=== PATIENT | female | born 1995 | race African-American/Black ===

== ENCOUNTER 2016-09-16 16:49 | Emergency (ER) | payer MEDICAID ==
[2016-09-16 19:30] VITALS: RESP 18
[2016-09-16 19:33] LABS: CHLAMYDIA PCR NOT DETECTED (NOT DETECT); NEISSERIA PCR NOT DETECTED (NOT DETECT)
[2016-09-16] MEDS ORDERED: METR-1 PO ×2 (19:39)
--- NOTE | 2016-09-16 19:53 | PD ---
HPI Chief Complaint vag bleeding Date Seen: Sep 16, 2016 Travel History International Travel<30 Days: No Contact w/Intl Traveler<30Days: No Known Affected Area: No History of Present Illness HPI Pt is a 20 year old G1 with IUP at 18 wks who presents with c/o vag bleeding on and off for several weeks. Pt states last intercourse 1 week ago. Pt reports bleeding is light, pinkish, only with wiping. denies cramping at present. reports h/o chlamydia earlier this , treated Para: 0 : 1 History Past Surgical History Surgical History: No Previous Surgery Social History Alcohol Use: No Tobacco Use: No Substance Abuse: No Allergies-Medications (Allergen,Severity, Reaction): Coded Allergies: No Known Allergies (Unverified , 09/16/16) Narrative Medication vitamins Review of Systems General / Constitutional: No: Fever, Weight Gain, Weight Loss, Chills, Other Eyes: No: Diploplia, Blurred Vision, Visual changes, Pain, Photophobia, Other HENT: No: Headaches, Vertigo, Dental Difficulties, Lightheadedness, Other Cardiovascular: No: Irregular Rhythm, Chest Pain or Discomfort, Palpitations, Tachycardia, Syncope, Varicosities, Edema, Cyanosis, Other Respiratory: No: Cough, Short of Breath, Wheezing, Other Gastrointestinal: No: Nausea, Vomiting, Diarrhea, Abdominal Pain, Hematemesis, Hematochezia, Constipation, Changes in Bowel Habits, Indigestion, Loss of Appetite, Other Genitourinary: No: Urgency, Frequency, Dysuria, Nocturia, Hematuria, Decreased Urinary Output, Oliguria, Hesitancy, Dribbling, Incontinence, Pelvic Pain, Dyspareunia, Discharge, Menorrhagia, Vaginal Bleeding, Other Musculoskeletal: No: Limited ROM, Weakness, Cramping, Edema, Pain, Other Skin: No Rash, No Itching, No Dryness, No Lumps, No Change in Pigmentation, No Change in Nails, No Alopecia, No Lesions, No Breast Lumps, No Breast Tenderness , No Breast Swelling, No Other Neurologic: No: Weakness, Dizziness, Syncope, Focal Abnormalities, Coordination Problem, Headache, Slurred Speech, Seizures, Other Psychiatric: No: Anxiety, Depression, Suicidal Ideations, Disorder of Thought, Mood Disorder, Substance Abuse, Homicidal Ideation, Other Endocrine: No: Heat Intolerance, Cold Intolerance, Polydipsia, Polyuria, Other Hematologic/Lymphatic: No Easy Bruising, No Lymph Node Enlargement, No Other Physical Exam Narrative GENERAL: Well-nourished, well-developed patient. SKIN: Warm and dry. HEAD: Normocephalic and atraumatic. EYES: No scleral icterus. No injection or drainage. ENT: No nasal drainage noted. Mucous membranes pink. Airway patent. NECK: Supple, trachea midline. No JVD. CARDIOVASCULAR: Regular rate and rhythm without murmurs, gallops, or rubs. RESPIRATORY: Breath sounds equal bilaterally. No accessory muscle use. . ABDOMEN/GI: Abdomen soft, non-tender, bowel sounds present, no rebound, no guarding gravid GENITOURINARY: External Genitalia: intact and normal in appearance BUS glands: [wnl] Cervix: visually closed, scant amount of dark red blood in vault closed/firm Membranes: intact Uterine Contractions: none FHT's: 150s EXTREMITIES: No cyanosis or edema. BACK: Nontender without obvious deformity. No CVA tenderness. NEUROLOGICAL: Awake and alert. Motor and sensory grossly within normal limits. Five out of 5 muscle strength in all muscle groups. Normal speech. Data Data Vital Signs Reviewed: Yes Orders Vital Signs (Adult) .ON ADMISSION (09/16/16 17:53) ^ Labor Status (09/16/16 17:53) ^ Hydration (09/16/16 17:53) Wet Prep Profile (09/16/16 17:53) Gc And Chlamydia Pcr (09/16/16 17:53) Labs Laboratory Tests Test 09/16/16 17:50 Clue Cells (Wet Prep) NONE SEEN Vaginal Trichomonas (Wet Prep) PRESENT Vaginal Yeast (Wet Prep) NONE SEEN Chlamydia trachomatis DNA NOT DETECTED (PCR) Neisseria gonorrhoeae DNA NOT DETECTED (PCR) MDM Narrative Course / MDM 20 y/o G1 with IUP at 18 wks with vag spotting, trichomonas on wet prep rx for flagyl instructions given to patient pt advised that partner needs to be treated, no sex for one week after both have completed rx Diagnosis Diagnosis: Primary Impression: Trichomonal vaginitis during in second trimester Additional Impression: 18 weeks gestation of Disposition: DISCHARGE HOME Condition: Stable Scripts Metronidazole (Flagyl)500 Mg [id number] Mg PO ONCE 1 Day Ref 4 Prov:Zachary Lujan MD 09/16/16 Metronidazole (Flagyl)500 Mg [id number] Mg PO QID 1 Day Ref 4 Prov:Zachary Lujan MD 09/16/16 Patient Instructions: General Instructions Additional Instructions: DRINK PLENTY OF WATER DURING DAY, RETURN IF LEAKING FLUID, VAGINAL BLEEDING, STRONG CONTRACTIONS OR DECREASE IN MOVEMENT. FOLLOW UP WITH YOUR OB DR IN AM AND KEEP ALL UPCOMING APPTS. Departure Forms: Tests/Procedures Zachary Lujan MD Sep 16, 2016 19:53
== END 2016-09-16 20:15 | disposition home or self-care (01) ==
LOC: HOBED 16:49
DX: A59.01 Trichomonal vulvovaginitis (principal); Z3A.18 18 weeks gestation of pregnancy
CPT/HCPCS: 87210; 87491; 87591; 99284

== ENCOUNTER 2016-09-24 23:36 | Emergency (ER) | payer MEDICAID ==
[~2016-09-24 23:36] MED LIST: METR-1 PO
--- NOTE | 2016-09-25 00:07 | PD ---
HPI Chief Complaint vaginal bleeding Date Seen: Sep 25, 2016 (Shanelle Odom MD R2) Travel History International Travel<30 Days: No Contact w/Intl Traveler<30Days: No (Shanelle Odom MD R2) History of Present Illness HPI Patient is a 20 year old at 19-6/7 weeks gestation who presents today for vaginal bleeding. She states that she has had vaginal bleeding for the past month of . She was evaluated in the OB ED on 09/16 and treated for Trichomoniasis. She continues to have the vaginal bleeding and noticed a clot today. She denies any other vaginal discharge, gush or leaking of fluid, or cramping. Last intercourse was 1-2 weeks ago. care with Olga Quinonez. (Shanelle Odom MD R2) History Past Medical History Medical History: Denies Significant Hx (Shanelle Odom MD) Obstetric History Obstetric History (Shanelle Odom MD) Past Surgical History Surgical History: No Previous Surgery (Shanelle Odom MD) Family History Family History: Negative (Shanelle Odom MD) Social History Alcohol Use: No Tobacco Use: No Substance Abuse: No (Shanelle Odom MD) Allergies-Medications (Allergen,Severity, Reaction): Coded Allergies: No Known Allergies (Unverified , 09/16/16) Home Meds Active Scripts Metronidazole Vaginal Gel (Metrogel Vaginal Gel)0.75 % Gel1 Appl VAGINAL BID # 1 TUBE Ref 0 Apply 2x/day for 5 days Prov:Shanelle Odom MD 09/25/16 Metronidazole (Flagyl)500 Mg [id number] Mg PO ONCE 1 Day Ref 4 Prov:Zachary Lujan MD 09/16/16 Metronidazole (Flagyl)500 Mg [id number] Mg PO QID 1 Day Ref 4 Prov:Zachary Lujan MD 09/16/16 Discontinued Scripts Metronidazole Vaginal Gel (Metrogel Vaginal Gel)0.75 % Gel1 Appl VAGINAL BID # 1 TUBE Ref 0 Apply 2x/day for 5 days Prov:Shanelle Odom MD 09/25/16 Metronidazole Vaginal Gel (Metrogel Vaginal Gel)0.75 % Gel1 Appl VAGINAL BID # 1 TUBE Ref 0 Prov:Shanelle Odom MD 09/25/16 Metronidazole Vaginal Gel (Metrogel Vaginal Gel)0.75 % Gel1 Appl VAGINAL BID # 1 TUBE Ref 0 Prov:Shanelle Odom MD R2 09/25/16 Review of Systems Except as stated in HPI: all other systems reviewed are Neg General / Constitutional: No: Fever, Chills Eyes: No: Blurred Vision, Visual changes HENT: No: Headaches Cardiovascular: No: Chest Pain or Discomfort Respiratory: No: Cough, Short of Breath Gastrointestinal: No: Nausea, Vomiting Genitourinary: No: Dysuria Musculoskeletal: No: Cramping, Edema (Shanelle Odom MD R2) Physical Exam Narrative GENERAL: Well-nourished, well-developed patient. SKIN: Warm and dry. HEAD: Normocephalic and atraumatic. EYES: No scleral icterus. No injection or drainage. ENT: No nasal drainage noted. Mucous membranes pink. Airway patent. NECK: Supple, trachea midline. No JVD. CARDIOVASCULAR: Regular rate and rhythm without murmurs, gallops, or rubs. RESPIRATORY: Breath sounds equal bilaterally. No accessory muscle use. BREASTS: Bilateral exam showed no masses , no retractions, no nipple discharge. ABDOMEN/GI: Abdomen soft, non-tender, bowel sounds present, no rebound, no guarding Gravid to 19 weeks size GENITOURINARY: Speculum Exam: Cervix is closed. Inferior portion appears strawberry-like with active bleeding. Copious greenish frothy discharge also present. Cervical motion tenderness on manual exam. External Genitalia: intact and normal in appearance BUS glands: normal Cervix: posterior Dilatation: 0 Effacement: 0 Station: -3 Presentation: vertex Membranes: intact Uterine Contractions: none FHT's: 156 EXTREMITIES: No cyanosis or edema. BACK: Nontender without obvious deformity. No CVA tenderness. NEUROLOGICAL: Awake and alert. Motor and sensory grossly within normal limits. Normal speech. (Sahnelle Odom MD R2) Data Data Vital Signs Reviewed: Yes Orders Vital Signs (Adult) .ON ADMISSION (09/25/16 00:05) ^ Labor Status (09/25/16 00:05) Urinalysis - C+S If Indicated (09/25/16 00:05) ^ Hydration (09/25/16 00:05) Wet Prep Profile (09/25/16 00:05) Gc And Chlamydia Pcr (09/25/16 00:05) (Shanelle Odom MD R2) MDM Medical Record Reviewed: Yes Narrative Course / MDM 20 year old at 19-6/7 weeks gestation. 1. IUP- FHT reassuring 2. Vaginal Bleeding- speculum exam significant for strawberry cervix with active bleeding and green, frothy discharge. Obtain wet prep and gc and chlamydia. Bedside US reassuring: Baby appears active with FHT 156. Vertex. Anterior grade 1 placenta, no abruption, no previa. Fluid wnl. dw Dr. Zeng Addendum: Patient is positive for Trichomonas. Will treat with Flagyl 2g PO once. Discharge home on Metrogel BID x 5 days. GC and chlamydia negative. Follow-up with Olga Quinonez. (Shanelle Odom MD R2) Disposition: DISCHARGE HOME Condition: Stable Scripts Metronidazole Vaginal Gel (Metrogel Vaginal Gel)0.75 % Gel1 Appl VAGINAL BID # 1 TUBE Ref 0 Apply 2x/day for 5 days Prov:Shanelle Odom MD R2 09/25/16 Addendum Remarks I rounded on the patient. I rounded with the resident. I reviewed the resident' s assessment and plan of care for this patient. I am in agreement with the plan of care for this patient. (Yuni Elizalde MD) Shanelle Odom MD R2 Sep 25, 2016 00:07 Yuni Elizalde MD Sep 26, 2016 14:24
[2016-09-25 00:10] VITALS: BP 121/67; PULSE 83
[2016-09-25 00:11] VITALS: RESP 18; TEMP 98.9
[2016-09-25] MEDS ORDERED: METR0.7528 VAGINAL ×4 (00:54→02:16)
[2016-09-25] MEDS ORDERED: metroNIDAZOLE 500 MG TAB PO ONE (01:00)
[2016-09-25 02:04] LABS: CHLAMYDIA PCR NOT DETECTED (NOT DETECT); NEISSERIA PCR NOT DETECTED (NOT DETECT)
== END 2016-09-25 02:16 | disposition home or self-care (01) ==
LOC: HOBED 23:36
DX: O98.812 Other maternal infectious and parasitic diseases complicating pregnancy, second trimester (principal); A59.09 Other urogenital trichomoniasis; Z3A.19 19 weeks gestation of pregnancy
CPT/HCPCS: 87210; 87491; 87591; 99284

== ENCOUNTER 2017-02-05 21:35 | Emergency (ER) | payer MEDICAID ==
[~2017-02-05 21:35] MED LIST changes: +METR0.7528 VAGINAL
--- NOTE | 2017-02-05 22:24 | PD ---
HPI Chief Complaint Contractions Date Seen: Feb 05, 2017 Time Seen: 22:00 Travel History International Travel<30 Days: No Contact w/Intl Traveler<30Days: No Known Affected Area: No History of Present Illness HPI 21-year-old primigravida at 39 weeks 5 days gestation who has been having which she thinks are contractions for the last week. She denies bleeding, leakage of fluid and reports good movement. Weeks Gestation: 39 Para: 0 : 1 History Past Medical History Medical History: Denies Significant Hx Obstetric History Obstetric History Primigravida, she sees Olga Quinonez Family History Family History: Negative Social History Alcohol Use: No Tobacco Use: No Substance Abuse: No Allergies-Medications (Allergen,Severity, Reaction): Coded Allergies: No Known Allergies (Unverified , 09/16/16) Home Meds Active Scripts Metronidazole Vaginal Gel (Metrogel Vaginal Gel) 0.75 % Gel, 1 APPL VAGINAL BID for Infection, #1 TUBE 0 Refills Apply 2x/day for 5 days Prov:Shanelle Odom MD, R3 09/25/16 Metronidazole (Flagyl) 500 Mg Tab, 500 MG PO ONCE for Infection for 1 Day, TAB 4 Refills Prov:Zachary Lujan MD 09/16/16 Metronidazole (Flagyl) 500 Mg Tab, 500 MG PO QID for Infection for 1 Day, TAB 4 Refills Prov:Zachary Lujan MD 09/16/16 Review of Systems Except as stated in HPI: all other systems reviewed are Neg Physical Exam Narrative GENERAL: Well-nourished, well-developed patient. SKIN: Warm and dry. HEAD: Normocephalic and atraumatic. EYES: No scleral icterus. No injection or drainage. ENT: No nasal drainage noted. Mucous membranes pink. Airway patent. NECK: Supple, trachea midline. No JVD. CARDIOVASCULAR: Regular rate and rhythm without murmurs, gallops, or rubs. RESPIRATORY: Breath sounds equal bilaterally. No accessory muscle use. ABDOMEN/GI: Abdomen soft, non-tender, bowel sounds present, no rebound, no guarding Gravid to [-] weeks size Fundal Height: [-] GENITOURINARY: External Genitalia: intact and normal in appearance BUS glands: [Negative-] Cervix: [-] Dilatation: [-Fingertip] Effacement: [60-] Station: [--2] Presentation: [v-] Membranes: [intact] Uterine Contractions: [-] FHT's: Category: [-] Baseline: [-] Reactive: [y-] Variability: [-] Decels: [-] EXTREMITIES: No cyanosis or edema. BACK: Nontender without obvious deformity. No CVA tenderness. NEUROLOGICAL: Awake and alert. Motor and sensory grossly within normal limits. Five out of 5 muscle strength in all muscle groups. Normal speech. MDM Medical Record Reviewed: Yes Narrative Course / MDM Assessment: 39+ week intrauterine with uterine irritability Plan: Labor precautions were reviewed. Hydration was encouraged. Follow-up is scheduled for visit. Disposition: 01 DISCHARGE HOME Condition: Good Patient Instructions: General Instructions, Having Your Baby: The Labor Process (GEN), Movement (ED) Additional Instructions: DRINK PLENTY OF WATER DURING DAY, RETURN IF LEAKING FLUID, VAGINAL BLEEDING, DECREASE IN BABY MOVING OR STRONG CONTRACTIONS. FOLLOW UP WITH YOUR OB DR IN THE AM AND KEEP ALL UPCOMING OB APPTS. Karlos Haines MD Feb 05, 2017 22:24
== END 2017-02-05 22:10 | disposition home or self-care (01) ==
LOC: HOBED 21:35
DX: O47.1 False labor at or after 37 completed weeks of gestation (principal); Z3A.39 39 weeks gestation of pregnancy
CPT/HCPCS: 99283

== ENCOUNTER 2017-02-08 15:48 | Inpatient (IN) | payer MEDICAID ==
[2017-02-08] VITALS (33 sets, daily range): BP systolic 107–144; BP diastolic 52–86; PULSE 63–128; RESP 12–24; TEMP 97.6–100.1; O2SAT 92–100
[~2017-02-08] VITALS: Ht 157.5 cm; Wt 68.0 kg
[2017-02-08] MEDS ORDERED: NO SYSTEM NARCOTICS PRN (16:00)
[2017-02-08] MEDS ORDERED: DO NOT ADMINISTER ANTICOAGULANTS PRN (16:00)
[2017-02-08] MEDS ORDERED: fentaNYL 2MCG-BUPIV 0.125% 100 ML EPIDURAL SCH (16:00)
[2017-02-08] MEDS ORDERED: LACTATED RINGER'S 1000 ML INJ 1,000 ML IV PRN (16:20)
--- NOTE | 2017-02-08 16:20 | PD ---
HPI Chief Complaint Contractions Date Seen: Feb 08, 2017 Time Seen: 16:13 Travel History International Travel<30 Days: No Contact w/Intl Traveler<30Days: No Known Affected Area: No History of Present Illness HPI 21-year-old who is at 40 weeks and 2 days comes in complaining of contractions that began early this morning and had progressed in intensity. Patient denies rupture of membranes or vaginal bleeding. Gestation states that she's had normal movement and she is group B strep positive. She obtained her care with Olga Quinonez. Weeks Gestation: 40 Para: 0 : 1 History Past Medical History Medical History: Denies Significant Hx Past Surgical History Surgical History: No Previous Surgery Family History Family History: Negative Social History Alcohol Use: No Tobacco Use: No Substance Abuse: No Allergies-Medications (Allergen,Severity, Reaction): Coded Allergies: No Known Allergies (Unverified , 09/16/16) Home Meds Active Scripts Metronidazole Vaginal Gel (Metrogel Vaginal Gel) 0.75 % Gel, 1 APPL VAGINAL BID for Infection, #1 TUBE 0 Refills Apply 2x/day for 5 days Prov:Shanelle Odom MD, R3 09/25/16 Metronidazole (Flagyl) 500 Mg Tab, 500 MG PO ONCE for Infection for 1 Day, TAB 4 Refills Prov:Zachary Lujan MD 09/16/16 Metronidazole (Flagyl) 500 Mg Tab, 500 MG PO QID for Infection for 1 Day, TAB 4 Refills Prov:Zachary Lujan MD 09/16/16 Review of Systems Except as stated in HPI: all other systems reviewed are Neg Physical Exam Narrative GENERAL: Well-nourished, well-developed patient. SKIN: Warm and dry. HEAD: Normocephalic and atraumatic. EYES: No scleral icterus. No injection or drainage. ENT: No nasal drainage noted. Mucous membranes pink. Airway patent. NECK: Supple, trachea midline. No JVD. CARDIOVASCULAR: Regular rate and rhythm without murmurs, gallops, or rubs. RESPIRATORY: Breath sounds equal bilaterally. No accessory muscle use. BREASTS: Bilateral exam showed no masses , no retractions, no nipple discharge. ABDOMEN/GI: Abdomen soft, non-tender, bowel sounds present, no rebound, no guarding Gravid to [-40] weeks size Fundal Height: [-] GENITOURINARY: External Genitalia: intact and normal in appearance BUS glands: [-Normal] Cervix: [-Mid position] Dilatation: [-8 and 9] Effacement: [-80] Station: [--2] Presentation: [-Vertex] Membranes: [intact ] Uterine Contractions: [Every 5 minutes-] FHT's: Category: [1-] Baseline: [-140] Reactive: [mod-] Variability: [-mod] Decels: [absent-] EXTREMITIES: No cyanosis or edema. BACK: Nontender without obvious deformity. No CVA tenderness. NEUROLOGICAL: Awake and alert. Motor and sensory grossly within normal limits. Five out of 5 muscle strength in all muscle groups. Normal speech. Data Data Vital Signs Reviewed: Yes Orders Orders Ob (2e) Additional Admit Info (02/08/17 16:10) [facility] Medical Record Reviewed: Yes Plan 21yo at 40w2d here in active labor GBS positive- will start PCN although doubt there will be time for more than a single dose Diagnosis Diagnosis: Primary Impression: 40 weeks gestation of Additional Impressions: Positive GBS test Irregular uterine contractions Misty Baca MD Feb 08, 2017 16:20
[2017-02-08] MEDS ORDERED: LIDOCAINE HCL 1% 50 ML VIAL INFIL PRN (16:30)
[2017-02-08] MEDS ORDERED: ONDANSETRON HCL 4 MG/2 ML VIAL IV PRN (16:30)
[2017-02-08] MEDS ORDERED: PENICILLIN G POTASSIUM INJ 5,000,000 UNITS in SODIUM CHLORIDE 0.9% INJ 100 ML IV ONE (16:30)
[2017-02-08] MEDS ORDERED: CITRIC ACID-SODIUM CITRATE LIQ 30 ML UDC PO SCH (16:30)
[2017-02-08] MEDS ORDERED: MINERAL OIL 10 ML VIAL TOPICAL PRN (16:30)
[2017-02-08] MEDS ORDERED: SODIUM CHLORID 0.9% 500 ML INJ 500 ML IV PRN (16:30)
[2017-02-08] MEDS ORDERED: OXYTOCIN 30 UNITS-500ML PREMIX 500 ML IV ONE ×2 (16:30→19:45)
[2017-02-08] MEDS ORDERED: LIDOCAINE HCL 1% 50 ML VIAL I-DERMAL PRN (16:30)
[2017-02-08] MEDS ORDERED: fentaNYL 2MCG-BUPIV 0.125% INJ 100 ML ONE (16:36)
[2017-02-08] MEDS ORDERED: SODIUM CHLOR 0.9% 1000 ML INJ 1,000 ML IV PRN (16:40)
[2017-02-08] MEDS: LACTATED RINGER'S 1000 ML INJ 1,000 ML IV SCH ×3 (16:40→21:18)
[2017-02-08 17:00] LABS: BACTERIA, URINE RARE /hpf; BLOOD, URINE TRACE (NEG); COMMENT (UR) CULT NOT INDICATED; CULTURE IF INDICATED CULT NOT INDICATED; GLUCOSE,URINE NEG (NEG); KETONE, URINE NEG (NEG); MUCUS URINE FEW /lpf (OCC); NITRITE,URINE NEG (NEG); SQUAMOUS EPITHELIAL CELL URINE 3 /hpf (0-5); URINE COLOR YELLOW (YELLW/STRAW)
[2017-02-08 17:05] LABS: AUTOMATED NEUTROPHIL # 6.6 TH/MM3 (1.8-7.7); BASOPHIL % 0.2 % (0.0-2.0); EOSINOPHIL # 0.1 TH/MM3 (0-0.4); EOSINOPHIL % 0.6 % (0.0-4.0); HEMO FLAGS DIFF FINAL; LYMPH % 27.6 % (9.0-44.0); LYMPHOCYTE # 2.8 TH/MM3 (1.0-4.8); MEAN CELL VOLUME 88.8 FL (80.0-100.0); MEAN CORPUSCULAR HGB CONC 32.7 % (32.0-36.0); MONO % 5.9 % (0.0-8.0); NEUT % 65.7 % (16.0-70.0); PLATELET COUNT 176 TH/MM3 (150-450); RED BLOOD COUNT 4.05 MIL/MM3 (4.00-5.30); RED CELL DISTRIBUTION WIDTH 13.8 % (11.6-17.2)
[2017-02-08] MEDS ORDERED: ePHEDrine/NS 25 MG/5 ML SYR ONE (17:45)
--- NOTE | 2017-02-08 17:54 | HHI.PR ---
WAREHOUSE ORDER PULLER Note Note Varible decelerations noted from baseline of 140 to 90 x 45 sec. Maternal hypotension noted s/p epidural treated with ephedrine with rapid increase in maternal blood pressure. AROM performed with moderate meconium. Cervix 8/80/-2 Misty Baca MD Feb 08, 2017 17:54
[2017-02-08] MEDS ORDERED: ePHEDrine/NS 25 MG/5 ML SYR IV PRN (18:45)
[2017-02-08] MEDS ORDERED: TERBUTALINE INJ 1 MG/ML AMP ONE (18:57)
[2017-02-08] MEDS ORDERED: OXYTOCIN 10 UNIT/ML AMP ONE ×2 (19:00→19:08)
[2017-02-08] MEDS ORDERED: ceFAZolin INJ 1,000 MG VIAL ONE (19:00)
[2017-02-08] MEDS ORDERED: ONDANSETRON HCL 4 MG/2 ML VIAL ONE (19:41)
[2017-02-08] MEDS ORDERED: MORPHINE SULFATE PF 5 MG/10 ML VIAL ONE (19:41)
[2017-02-08 19:43] LABS: BLOOD GAS O2 HGB SATURATION 44 % (90-100); CORD BLOOD GAS HCO3 23 mmol/L (21-29); CORD BLOOD GAS PCO2 47 mmHG (34-78); CORD BLOOD GAS PO2 23 mmHG (3.0-40.0); DRAW SITE CORD BLOOD; STAT YES
--- NOTE | 2017-02-08 19:44 | PD.OB.DELI ---
Procedure Note Section Procedure Pre Op Diagnosis: (1) 40 weeks gestation of (2) Irregular uterine contractions (3) Positive GBS test (4) Meconium stained amniotic fluid, delivered, current hospitalization (5) Non-reassuring heart tones complicating , antepartum Post Op Diagnosis: Performed by Misty Baca Procedure: Primary Low Transverse Sec Indication for delivery: Nonreassuring heart tracing Previous condition: None Informed consent obtained: For anesthesia, For procedure Confirmed correct: Time-out taken Anesthesia: Epidural Medication prior to procedure: Antibiotics, IV Monitoring during procedure: Blood pressure monitoring, patient monitor, Pulse oximetry Urinary catheter: To dependent drainage Sterile preparation: With 10% povidone iodine (Betadine) Position: Supine with wedge to left side Operative Features Skin Incision: Pfannenstiel Uterine Incision: Low transverse w/knife / blunt ext Membranes Ruptured: Previously, Appearance of fluid (moderate meconium) Presentation: Occiput posterior Delivery date: Feb 08, 2017 Delivery time: 19:09 Delivery of infant: Uneventful, Umbilical cord (nuchal x 2) : Female One Minute : 8 Five Minute : 8 Weight: 3340 Status of : Viable Placenta delivered: Intact Estimated blood loss: 600cc Procedure tolerated: Well Maternal Condition: Stable Baby Complications: Respiratory distress Condition: Stable Misty Baca MD Feb 08, 2017 19:44
[2017-02-08] MEDS ORDERED: ONDANSETRON HCL 4 MG/2 ML VIAL IV PUSH PRN (19:45)
[2017-02-08] MEDS ORDERED: SODIUM CHLORIDE 0.9% FLUSH 10 ML FLUSH IV FLUSH PRN (19:45)
[2017-02-08] MEDS ORDERED: SIMETHICONE 80 MG CHEWABLE TAB PO PRN (19:45)
[2017-02-08] MEDS ORDERED: KETOROLAC TROMETHAMINE 60 MG/2 ML (IM) VIAL IM PRN (19:45)
[2017-02-08] MEDS ORDERED: oxyCODONE/ACETAMINOPHEN 5 MG/325 MG TAB PO PRN (19:45)
[2017-02-08] MEDS ORDERED: PENICILLIN G POTASSIUM INJ 2,500,000 UNITS in SODIUM CHLORIDE 0.9% INJ 100 ML IV SCH (20:30)
[2017-02-08] MEDS ORDERED: SODIUM CHLORIDE 0.9% FLUSH 10 ML FLUSH IV FLUSH SCH (21:00)
[2017-02-08] MEDS ORDERED: OXYTOCIN 30 UNITS-500ML PREMIX 500 ML ONE (22:05)
[2017-02-09 01:30] VITALS: TEMP 98.8
[2017-02-09] MEDS: LACTATED RINGER'S 1000 ML INJ 1,000 ML IV SCH (02:54)
[2017-02-09 03:00] VITALS: BP 131/75; PULSE 86; RESP 16; TEMP 98.1
[2017-02-09] MEDS ORDERED: OXYTOCIN 30 UNITS-500ML PREMIX 500 ML IV PRN (05:45)
[2017-02-09 08:14] VITALS: BP 107/66; PULSE 85; RESP 16; TEMP 98.1
--- NOTE | 2017-02-09 08:31 | HHI.OB ---
Subjective Post Operative Day: 1 Remarks Pt seen and examined this morning.Postoperative day # 1 AFVSS overnight. Incision with silver dressing, not draining. Decreased lochia. Denies dysuria. No breast tenderness. She is feeding the baby via breast. Appetite good. nausea and vomiting overnight. Patient has not yet had a bowel movement. Denies flatus. Has not yet attempted to ambulate. Denies calf pain, shortness of breath , CP, RICK or vision issues . Pt also complained of generalized itchiness. Objective Vitals/I&O Vital Signs Date Time Temp Pulse Resp B/P (MAP) Pulse Ox O2 Delivery O2 Flow Rate FiO2 02/09/17 08:14 98.1 85 16 107/66 (80) 02/09/17 03:00 98.1 86 16 131/75 (93) 02/09/17 01:30 98.8 02/08/17 23:00 80 144/86 (105) 02/08/17 23:00 100.1 16 02/08/17 21:30 82 134/71 (92) 02/08/17 21:30 14 100 02/08/17 21:15 75 12 138/81 (100) 02/08/17 21:15 18 02/08/17 21:15 98.6 02/08/17 21:15 99 02/08/17 21:00 129/73 (91) 02/08/17 21:00 97 20 96 02/08/17 20:43 97.6 02/08/17 20:41 107 20 132/69 (90) 100 02/08/17 20:25 112 19 126/76 (93) 100 02/08/17 20:08 120 24 126/81 (96) 99 02/08/17 19:45 97.6 121 20 120/63 (82) 02/08/17 19:45 100 02/08/17 19:11 18 02/08/17 18:52 96 122/70 (87) 02/08/17 18:40 89 02/08/17 18:35 63 02/08/17 18:35 83 02/08/17 18:31 92 02/08/17 18:30 86 02/08/17 18:25 80 02/08/17 18:20 84 02/08/17 18:16 78 02/08/17 18:15 83 02/08/17 17:55 86 02/08/17 17:50 89 02/08/17 17:46 128 107/72 (84) 02/08/17 17:45 85 02/08/17 17:44 77 02/08/17 17:44 107/52 (70) 02/08/17 17:40 79 02/08/17 17:40 114/85 (95) 02/08/17 17:40 82 02/08/17 17:35 124/71 (88) 02/08/17 17:35 75 02/08/17 17:35 69 02/08/17 17:30 69 02/08/17 17:30 132/78 (96) 02/08/17 17:30 72 02/08/17 17:29 16 02/08/17 17:25 84 02/08/17 17:25 76 131/86 (101) 02/08/17 17:20 77 137/77 (97) 02/08/17 17:20 65 02/08/17 17:19 76 134/80 (98) Intake & Output 02/09/17 02/09/17 07:00 19:00 Intake Total 100 ml Balance 100 ml Intake IV Total 100 ml Result Diagram: 02/08/17 1620 Objective Remarks GENERAL: Well-nourished, well-developed patient. CARDIOVASCULAR: Regular rate and rhythm without murmurs, gallops, or rubs. RESPIRATORY: Breath sounds equal bilaterally. No accessory muscle use. ABDOMEN/GI: Abdomen soft, non-tender, bowel sounds present. Incision: Clean, dry and intact. Fundus: Firm, non-tender at umbilicus. GENITOURINARY: Light to moderate bleeding. EXTREMITIES: No cyanosis or edema, non-tender, without signs of DVT. Medications and IVs Current Medications Medications (Trade) Dose Ordered Sig/Navi Route Start Time Stop Time Status Last Admin Lactated Ringer's 1,000 ml @ 125 mls/hr Q8H IV 02/08/17 16:20 02/08/17 21:18 Lactated Ringer's 1,000 ml @ 3,000 mls/hr Q20M PRN IV 02/08/17 16:20 02/08/17 17:34 Sodium Chloride 500 ml @ 1,000 mls/hr ONCE PRN IV 02/08/17 16:30 Sodium Chloride 1,000 ml @ 100 mls/hr Q10H PRN IV 02/08/17 16:40 (Xylocaine 1% Inj (50 ml)) 0.1 ml UNSCH X1 PRN I-DERMAL 02/08/17 16:30 02/11/17 16:29 (Bicitra Liq) 30 ml [employer] PO 02/08/17 16:30 02/12/17 16:29 (Zofran Inj) 4 mg Q6H PRN IV 02/08/17 16:30 (fentaNYL INJ) 50 mcg Q1H PRN IV PUSH 02/08/17 16:30 (fentaNYL INJ) 100 mcg Q1H PRN IV PUSH 02/08/17 16:30 Penicillin G Potassium 2590962 units/Sodium Chloride 100 ml @ 200 mls/hr Q4H IV 02/08/17 20:30 02/08/17 20:30 (Xylocaine 1% Inj (50 ml)) 10 ml UNSCH X1 PRN INFIL 02/08/17 16:30 02/10/17 16:29 (Muri-Lube Oil) 10 ml UNSCH PRN TOPICAL 02/08/17 16:30 Miscellaneous Information No systemic narcotics to be given except... UNSCH PRN .XX 02/08/17 16:00 02/09/17 15:59 Miscellaneous Information DO NOT ADMINISTER ANY ANTICOAGUL... UNSCH PRN .XX 02/08/17 16:00 02/09/17 15:59 Fentanyl/ Bupivacaine HCl 100 ml @ 0 mls/hr TITRATE EPIDURAL 02/08/17 16:00 02/08/17 19:11 (ePHEDrine/NS 25 MG/5 ML SYR) 10 mg UNSCH PRN IV 02/08/17 18:45 02/09/17 18:44 02/08/17 17:47 Lactated Ringer's 1,000 ml @ 100 mls/hr Q10H IV 02/09/17 00:44 02/09/17 20:43 02/09/17 02:54 Oxytocin 500 ml @ 100 mls/hr UNSCH X1 PRN IV 02/09/17 05:45 02/10/17 05:44 (NS Flush) 2 ml BID IV FLUSH 02/08/17 21:00 (NS Flush) 2 ml UNSCH PRN IV FLUSH 02/08/17 19:45 (Mylicon Chew) 80 mg QID PRN PO 02/08/17 19:45 (Motrin) 600 mg Q6H PRN PO 02/08/17 19:45 (Toradol Inj) 30 mg Q6H PRN IM 02/08/17 19:45 02/09/17 19:44 (Percocet 5-325 Mg) 1 tab Q4H PRN PO 02/08/17 19:45 (Percocet 5-325 Mg) 2 tab Q4H PRN PO 02/08/17 19:45 Cefazolin Sodium 1000 mg/Sodium Chloride 100 ml @ 200 mls/hr Q8H IV 02/09/17 03:00 02/09/17 11:29 02/09/17 02:46 (Deb-Colace) 2 tab Q12H PRN PO 02/08/17 19:45 (M-M-R Ii Inj) 0.5 ml ONCE ONCE SQ 02/09/17 16:00 02/09/17 16:01 (Boostrix Inj) 0.5 ml ONCE ONCE IM 02/09/17 16:00 02/09/17 16:01 (Zofran Inj) 4 mg Q6H PRN IV PUSH 02/08/17 19:45 02/09/17 04:26 Assessment/Plan Problem List: (1) 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 -Continue routine care. -Percocet and Motrin PRN pain. -c/w Ancef 2 bags -Encouraged OOB. Advised pelvic rest for 6 wks. Will need a f/u appt. in 1-2 wks for incision check. -Re: ctrl, she would like discuss her options . -Anticipate discharge 02/11. -pending am labs, cbc -will add benadryl to medications for itchiness dw MD Bette Mclain,Yen Basilio MD R1 Feb 09, 2017 08:31
[2017-02-09] MEDS ORDERED: diphenhydrAMINE HCL 50 MG CAP PO PRN (09:00)
[2017-02-09 13:00] VITALS: BP 125/78; PULSE 85; RESP 16; TEMP 98.1
[2017-02-09] MEDS: DOCUSATE SODIUM 50 MG/SENNA 8.6 MG TAB PO PRN (13:00)
[2017-02-09] MEDS: oxyCODONE/ACETAMINOPHEN 5 MG/325 MG TAB PO PRN (13:00)
[2017-02-09] MEDS: IBUPROFEN 600 MG TAB PO PRN (13:01)
[2017-02-09 14:23] LABS: AUTOMATED NEUTROPHIL # 7.6 TH/MM3 (1.8-7.7); BASOPHIL % 0.1 % (0.0-2.0); EOSINOPHIL % 0.2 % (0.0-4.0); HEMATOCRIT 30.7 % (35.0-46.0); HEMO FLAGS DIFF FINAL; LYMPHOCYTE # 2.1 TH/MM3 (1.0-4.8); MEAN CELL VOLUME 88.4 FL (80.0-100.0); MEAN CORPUSCULAR HEMOGLOBIN 29.1 PG (27.0-34.0); MONO % 6.2 % (0.0-8.0); NEUT % 73.5 % (16.0-70.0); PLATELET COUNT 140 TH/MM3 (150-450); RED BLOOD COUNT 3.47 MIL/MM3 (4.00-5.30); RED CELL DISTRIBUTION WIDTH 13.4 % (11.6-17.2); WHITE BLOOD COUNT 10.3 TH/MM3 (4.0-11.0)
[2017-02-09 15:57] VITALS: BP 121/76; PULSE 71; RESP 16; TEMP 97.9
[2017-02-09] MEDS ORDERED: DIPHTH/TETANUS/ACEL PERTUSSIS (BOOSTER) 0.5 ML VIAL/PFS IM ONE (16:00)
[2017-02-09] MEDS ORDERED: MEASLES, MUMPS, RUBELLA VACCINE 0.5 ML VIAL SQ ONE (16:00)
[2017-02-09 20:00] VITALS: BP 117/69; PULSE 86; RESP 18; TEMP 99
[2017-02-10] MEDS: IBUPROFEN 600 MG TAB PO PRN ×3 (01:34→19:48)
[2017-02-10] MEDS: oxyCODONE/ACETAMINOPHEN 5 MG/325 MG TAB PO PRN ×3 (01:34→19:48)
[2017-02-10] MEDS: DOCUSATE SODIUM 50 MG/SENNA 8.6 MG TAB PO PRN ×2 (01:40→11:38)
[2017-02-10 08:40] VITALS: BP 116/70; PULSE 91; RESP 16; TEMP 98.6
--- NOTE | 2017-02-10 10:06 | HHI.OB ---
Subjective Post Operative Day: 2 Remarks Pt seen and examined this morning. Postoperative day # 2 AFVSS overnight. Incision not draining. Decreased lochia. Denies dysuria. No breast tenderness. She is feeding the baby via bottle. Appetite good. No nausea or vomiting. Patient has not yet had a bowel movement, but does endorse bowel gas. Ambulating well. Denies calf pain or shortness of breath. Otherwise, she is doing well this morning and has no other concerns. Objective Vitals/I&O Vital Signs Date Time Temp Pulse Resp B/P (MAP) Pulse Ox O2 Delivery O2 Flow Rate FiO2 02/10/17 08:40 98.6 91 16 116/70 (85) 02/09/17 20:00 99.0 86 18 117/69 (85) 02/09/17 16:18 16 02/09/17 16:17 16 02/09/17 15:57 97.9 71 16 121/76 (91) 02/09/17 13:00 85 125/78 (94) 02/09/17 13:00 98.1 16 Result Diagram: 02/09/17 1412 Objective Remarks GENERAL: Well-nourished, well-developed patient. CARDIOVASCULAR: Regular rate and rhythm without murmurs, gallops, or rubs. RESPIRATORY: Breath sounds equal bilaterally. No accessory muscle use. ABDOMEN/GI: Abdomen soft, non-tender, bowel sounds present. Incision: Clean, dry and intact. Fundus: Firm, non-tender at umbilicus. GENITOURINARY: Light to moderate bleeding. EXTREMITIES: No cyanosis or edema, non-tender, without signs of DVT. Medications and IVs Current Medications Medications (Trade) Dose Ordered Sig/Navi Route Start Time Stop Time Status Last Admin Lactated Ringer's 1,000 ml @ 125 mls/hr Q8H IV 02/08/17 16:20 02/08/17 21:18 Lactated Ringer's 1,000 ml @ 3,000 mls/hr Q20M PRN IV 02/08/17 16:20 02/08/17 17:34 Sodium Chloride 500 ml @ 1,000 mls/hr ONCE PRN IV 02/08/17 16:30 Sodium Chloride 1,000 ml @ 100 mls/hr Q10H PRN IV 02/08/17 16:40 (Xylocaine 1% Inj (50 ml)) 0.1 ml UNSCH X1 PRN I-DERMAL 02/08/17 16:30 02/11/17 16:29 (Bicitra Liq) 30 ml REAL ESTATE ACCOUNTANT PO 02/08/17 16:30 02/12/17 16:29 (Zofran Inj) 4 mg Q6H PRN IV 02/08/17 16:30 02/09/17 15:46 (fentaNYL INJ) 50 mcg Q1H PRN IV PUSH 02/08/17 16:30 (fentaNYL INJ) 100 mcg Q1H PRN IV PUSH 02/08/17 16:30 Penicillin G Potassium 5053998 units/Sodium Chloride 100 ml @ 200 mls/hr Q4H IV 02/08/17 20:30 02/08/17 20:30 (Xylocaine 1% Inj (50 ml)) 10 ml UNSCH X1 PRN INFIL 02/08/17 16:30 02/10/17 16:29 (Muri-Lube Oil) 10 ml UNSCH PRN TOPICAL 02/08/17 16:30 Fentanyl/ Bupivacaine HCl 100 ml @ 0 mls/hr TITRATE EPIDURAL 02/08/17 16:00 02/08/17 19:11 (NS Flush) 2 ml BID IV FLUSH 02/08/17 21:00 (NS Flush) 2 ml UNSCH PRN IV FLUSH 02/08/17 19:45 (Mylicon Chew) 80 mg QID PRN PO 02/08/17 19:45 (Motrin) 600 mg Q6H PRN PO 02/08/17 19:45 02/10/17 01:34 (Percocet 5-325 Mg) 1 tab Q4H PRN PO 02/08/17 19:45 (Percocet 5-325 Mg) 2 tab Q4H PRN PO 02/08/17 19:45 02/10/17 01:34 (Deb-Colace) 2 tab Q12H PRN PO 02/08/17 19:45 02/10/17 01:40 (Zofran Inj) 4 mg Q6H PRN IV PUSH 02/08/17 19:45 02/09/17 04:26 (Benadryl) 50 mg Q6H PRN PO 02/09/17 09:00 Assessment/Plan Problem List: (1) Status post ICD Codes: Z98.891 - 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 -Continue routine care. -Percocet and Motrin PRN pain. -Post-op H/H: 03/29 -S/P Ancef 2 bags post-op -Encouraged OOB. Advised pelvic rest for 6 wks. Will need a f/u appt. in 1-2 wks for incision check and bandage removal. -Re: ctrl, she would like discuss her options at her f/u appointment. -Anticipate discharge 02/11. -Benadryl to medications for itchiness dw Dr. Naresh MD Discharge Planning Likely tomorrow, pending clinical course Steven Nuñez MD R2 Feb 10, 2017 10:06
[2017-02-10 19:52] VITALS: BP 116/77; PULSE 84; RESP 15; TEMP 98.2
--- NOTE | 2017-02-10 21:52 | MP ---
cc: PIPPA CALL M.D. DATE OF SURGERY 02/08/2017 PREOPERATIVE DIAGNOSIS 1. 40 weeks gestation 2. Non-reassuring heart rate tracing. 3. Moderate meconium. 4. Group B strep positive. POSTOPERATIVE DIAGNOSIS 1. 40 weeks gestation 2. Non-reassuring heart rate tracing. 3. Moderate meconium. 4. Group B strep positive. PROCEDURE Primary low transverse section without extension ESTIMATED BLOOD LOSS 500 cc ANESTHESIA An epidural MEDICATIONS Ancef two grams was given intraoperatively as this was an emergency section. SURGEON Pippa Call MD PROJECT INTERN OR tech DRAINS Chris to gravity COUNTS Correct x3 FINDINGS 1. Normal uterus, tubes and ovaries. 2. Moderate meconium-stained amniotic fluid. 3. Nuchal cord x2. 4. Occiput posterior presentation of an infant female with 's of 8 and 8, weight was 3340 grams, 7 pounds 6 ounces. DESCRIPTION OF PROCEDURE The patient taken back to the operating room, prepped and draped in the usual sterile fashion, placed in the dorsosupine position with a wedge to her left side. The patient was prepped very quickly with Betadine as a section was done for a non-reassuring heart rate tracing and then a Pfannenstiel incision was made in the skin and taken down to the fascia. The fascia was nicked in the midline and extended bilaterally, taken off the rectus muscles. THe muscles were divided in the midline. The anterior peritoneum was entered. The vesicouterine peritoneum was noted to be away from the field and a transverse hysterotomy incision was made and bluntly extended bilaterally. The was delivered into the operative field. Nuchal cord x2 was reduced and the rest of the body was delivered and then was assessed by on the neonatology team. A 45-second cord clamping delay was performed before the placenta was delivered intact. The endometrial cavity was curetted with a moist laparotomy sponge and the hysterotomy incision was repaired using a running locking #1 chromic suture with good hemostasis at closure. Gutters were rendered free all blood and blood and clot material. 0 chromic was used to plicate the abdominal musculature in the midline and a #1 PDS was used to close the fascia. A subcuticular suture of 4-0 Monocryl was placed at the skin. The patient tolerated procedure well. She has taken back to the recovery room good condition. MD LEANDRA Dowling/DELMER /7:46 PM /9:40 PM
[2017-02-11] MEDS: DOCUSATE SODIUM 50 MG/SENNA 8.6 MG TAB PO PRN (02:29)
[2017-02-11] MEDS: oxyCODONE/ACETAMINOPHEN 5 MG/325 MG TAB PO PRN (02:29)
[2017-02-11] MEDS: IBUPROFEN 600 MG TAB PO PRN ×2 (02:30→10:05)
[2017-02-11] MEDS ORDERED: OXYC1TAB63 PO (07:23)
[2017-02-11] MEDS ORDERED: SENN1TAB PO (07:23)
[2017-02-11] MEDS ORDERED: IBUP-232 PO (07:23)
--- NOTE | 2017-02-11 07:25 | HHI.DCPOC ---
Discharge Care Plan Diagnosis: (1) Status post Report Symptoms to Your Doctor -Temperature above 100.5 degrees -Redness, of incision or excessive or foul smelling drainage -Unusual pain or calf pain -Increased vaginal bleeding -Painful or difficulty urinating -Feelings of extreme sadness or anxiety after 2 weeks Goals to Promote Your Health * To prevent worsening of your condition and complications * To maintain your health at the optimal level Directions to Meet Your Goals Take your medications as prescribed Follow your dietary instruction Follow activity as directed Ensure plenty of rest for recovery Drink fluids for hydration Keep your appointments as scheduled Take your immunizations and boosters as scheduled If your symptoms worsen call your PCP, if no PCP go to Urgent Care Center or Emergency Room Smoking is Dangerous to Your Health. Avoid second hand smoke Call the 24-hour crisis hotline for domestic abuse at Yen Amos MD R1 Feb 11, 2017 07:25
--- NOTE | 2017-02-11 07:58 | HHI.OB ---
Subjective Post Operative Day: 3 Remarks Pt seen and examined this morning.Postoperative day # 3 AFVSS overnight. Incision not draining. Decreased lochia. Denies dysuria. No breast tenderness. She is feeding the baby via bottle. Appetite good. No nausea or vomiting. Patient has not yet had a bowel movement. + flatus Ambulating well. Denies calf pain or shortness of breath. Pt stated her pain is minimal. Otherwise, she is doing well this morning and has no other concerns. (Yen Amos MD R1) Attestation Patient seen and examined. Agree with resident's assessment and plan. (Michelle Ortiz MD) Objective Vitals/I&O Vital Signs Date Time Temp Pulse Resp B/P (MAP) Pulse Ox O2 Delivery O2 Flow Rate FiO2 02/10/17 19:52 98.2 84 15 116/77 (90) 02/10/17 08:40 98.6 91 16 116/70 (85) (Yen Amos MD R1) Result Diagram: 02/09/17 1412 Objective Remarks GENERAL: Well-nourished, well-developed patient. CARDIOVASCULAR: Regular rate and rhythm without murmurs, gallops, or rubs. RESPIRATORY: Breath sounds equal bilaterally. No accessory muscle use. ABDOMEN/GI: Abdomen soft, bowel sounds present. slight tenderness to palpation on lower abd Incision: Clean, dry and intact. silver dressing Fundus: Firm, non-tender at umbilicus. GENITOURINARY: Light to moderate bleeding. EXTREMITIES: No cyanosis or edema, non-tender, without signs of DVT. Medications and IVs Current Medications Medications (Trade) Dose Ordered Sig/Navi Route Start Time Stop Time Status Last Admin Lactated Ringer's 1,000 ml @ 125 mls/hr Q8H IV 02/08/17 16:20 02/08/17 21:18 Lactated Ringer's 1,000 ml @ 3,000 mls/hr Q20M PRN IV 02/08/17 16:20 02/08/17 17:34 Sodium Chloride 500 ml @ 1,000 mls/hr ONCE PRN IV 02/08/17 16:30 Sodium Chloride 1,000 ml @ 100 mls/hr Q10H PRN IV 02/08/17 16:40 (Xylocaine 1% Inj (50 ml)) 0.1 ml UNSCH X1 PRN I-DERMAL 02/08/17 16:30 02/11/17 16:29 (Bicitra Liq) 30 ml BOND ANALYST PO 02/08/17 16:30 02/12/17 16:29 (Zofran Inj) 4 mg Q6H PRN IV 02/08/17 16:30 02/09/17 15:46 (fentaNYL INJ) 50 mcg Q1H PRN IV PUSH 02/08/17 16:30 (fentaNYL INJ) 100 mcg Q1H PRN IV PUSH 02/08/17 16:30 Penicillin G Potassium 2422293 units/Sodium Chloride 100 ml @ 200 mls/hr Q4H IV 02/08/17 20:30 02/08/17 20:30 (Muri-Lube Oil) 10 ml UNSCH PRN TOPICAL 02/08/17 16:30 Fentanyl/ Bupivacaine HCl 100 ml @ 0 mls/hr TITRATE EPIDURAL 02/08/17 16:00 02/08/17 19:11 (NS Flush) 2 ml BID IV FLUSH 02/08/17 21:00 (NS Flush) 2 ml UNSCH PRN IV FLUSH 02/08/17 19:45 (Mylicon Chew) 80 mg QID PRN PO 02/08/17 19:45 (Motrin) 600 mg Q6H PRN PO 02/08/17 19:45 02/11/17 02:30 (Percocet 5-325 Mg) 1 tab Q4H PRN PO 02/08/17 19:45 (Percocet 5-325 Mg) 2 tab Q4H PRN PO 02/08/17 19:45 02/11/17 02:29 (Deb-Colace) 2 tab Q12H PRN PO 02/08/17 19:45 02/11/17 02:29 (Zofran Inj) 4 mg Q6H PRN IV PUSH 02/08/17 19:45 02/09/17 04:26 (Benadryl) 50 mg Q6H PRN PO 02/09/17 09:00 (Yen Amos MD R1) Assessment/Plan Problem List: (1) Status post ICD Codes: Z98.891 - History of uterine 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 -Continue routine care. -Percocet and Motrin PRN pain. -senna to help with BM -Post-op H/H: 03/30 -S/P Ancef 2 bags post-op -Encouraged OOB. Advised pelvic rest for 6 wks. Will need a f/u appt. in 1-2 wks for incision check and bandage removal. -Re: ctrl, she would like discuss her options at her f/u appointment. -discharge today, 02/11. diaz Infante MD Discharge Planning today (Yen Amos MD R1) Yen Amos MD R1 Feb 11, 2017 07:58 Michelle Ortiz MD Feb 11, 2017 09:05
[2017-02-11 08:01] VITALS: BP 118/72; PULSE 89; RESP 16; TEMP 97.8
== END 2017-02-11 14:11 | disposition home or self-care (01) | DRG 766 ==
LOC: HOBED 15:48 → H2EB 16:10 → H1EA 02-09 00:09
PROVIDERS: ADMIT Obstetrics & Gynecology Obstetrics; ATTEND Obstetrics & Gynecology Obstetrics
PROC: 10D00Z1 Extraction of Products of Conception, Low, Open Approach (ICD-10-PCS; principal; 2017-02-08)
PROC: 3E0R33Z Introduction of Anti-inflammatory into Spinal Canal, Percutaneous Approach (ICD-10-PCS; 2017-02-08)
PROC: 00HU33Z Insertion of Infusion Device into Spinal Canal, Percutaneous Approach (ICD-10-PCS; 2017-02-08)
DX: O76 Abnormality in fetal heart rate and rhythm complicating labor and delivery (principal); O99.824 Streptococcus B carrier state complicating childbirth; Z37.0 Single live birth; Z3A.40 40 weeks gestation of pregnancy; O69.81X0 Labor and delivery complicated by cord around neck, without compression, not applicable or unspecified; O77.0 Labor and delivery complicated by meconium in amniotic fluid
CPT/HCPCS: 59025; 76815; 81001; 82805; 85025; 86592; 86900; 86901; 99285; J0690; J2274; J2405; J2540; J2590; J3105; J7120

== ENCOUNTER 2017-03-22 11:31 | Emergency (ER) | payer MEDICAID ==
[2017-03-22] VITALS (10 sets, daily range): BP systolic 113–161; BP diastolic 63–77; PULSE 45–60; RESP 15–16; TEMP 97.5–98.2; O2SAT 93–100
[~2017-03-22 11:31] MED LIST changes: +IBUP-232 PO; -METR-1 PO; -METR0.7528 VAGINAL; +OXYC1TAB63 PO; +SENN1TAB PO
[2017-03-22 13:47] LABS: AMORPHOUS SEDIMENT, URINE RARE; BILIRUBIN, URINE NEG (NEG); BLOOD, URINE NEG (NEG); GLUCOSE,URINE NEG (NEG); KETONE, URINE NEG (NEG); MUCUS URINE FEW /lpf (OCC); NITRITE,URINE POS (NEG); SQUAMOUS EPITHELIAL CELL URINE 1 /hpf (0-5); URINE COLOR YELLOW (YELLW/STRAW); URINE LEUKOCYTE ESTERASE NEG (NEG)
--- NOTE | 2017-03-22 14:22 | PD ---
HPI Chief Complaint Elevated BP reading in clinic Date Seen: Mar 22, 2017 Time Seen: 12:15 (Ty Rodríguez MD R2) Travel History International Travel<30 Days: No Contact w/Intl Traveler<30Days: No (Ty Rodríguez MD R2) History of Present Illness HPI 21-year-old at approximately 5 weeks (delivery date February 08, 2017) from due to distress presenting for an elevated blood pressure reading in clinic. Today she feels well. Denies headache, vision changes, epigastric pain. Denies vaginal bleeding, chest pain, shortness of breath. (Ty Rodríguez MD R2) History Past Medical History Medical History: Denies Significant Hx (Ty Rodríguez MD R2) Obstetric History Obstetric History at 40 weeks due to nonreassuring heart tones (Ty Rodríguez MD R2) Past Surgical History Narrative Surgical C/S (Ty Rodríguez MD R2) Family History Family History: Negative (Ty Rodríguez MD R2) Social History Alcohol Use: No Tobacco Use: No Substance Abuse: No (Ty Rodríguez MD R2) Allergies-Medications (Allergen,Severity, Reaction): Coded Allergies: No Known Allergies (Unverified , 02/08/17) Home Meds Active Scripts Sennosides-Docusate Sodium (Senna Plus 8.6-50 mg) 8.6 Mg-50 Mg Tab, 2 TAB PO Q12H Y for CONSTIPATION, #60 TAB Prov:Yen Amos MD, R1 02/11/17 Oxycodone-Acetaminophen (Oxycodone-Acetaminophen) 5-325 mg Tab, 1 TAB PO Q4H Y for PAIN SCALE 6 TO 10, #20 TAB Prov:Yen Amos MD, R1 02/11/17 Ibuprofen (Ibuprofen) 600 Mg Tab, 600 MG PO Q6H Y for CRAMPING, #30 TAB Prov:Yen Amos MD, R1 02/11/17 Review of Systems Except as stated in HPI: all other systems reviewed are Neg (Ty Rodríguez MD R2) Physical Exam Vital Signs Date Time Temp Pulse Resp B/P (MAP) Pulse Ox O2 Delivery O2 Flow Rate FiO2 03/22/17 13:46 57 125/69 (87) 03/22/17 13:30 60 127/70 (89) 03/22/17 13:16 58 113/66 (82) 03/22/17 12:45 58 122/75 (91) 03/22/17 12:35 98.2 03/22/17 12:31 53 03/22/17 12:31 126/75 (92) 03/22/17 12:30 51 129/70 (89) 03/22/17 12:08 55 129/75 (93) 03/22/17 11:41 98.0 55 15 161/77 (105) 100 Narrative GENERAL: Well-developed, well-nourished female sitting up in bed in no acute distress SKIN: No rashes, ecchymoses or lesions. Cool and dry. HEAD: NC/AT EYES: No conjunctival injection or drainage. ENT: MMM NECK: No JVD. CARDIOVASCULAR: NRRR. Normal S1/S2. No MRG RESPIRATORY: CTAB. No crackles or wheezes. GASTROINTESTINAL: Abdomen soft, non-distended, non-tender. No hepato- splenomegaly or palpable masses. MUSCULOSKELETAL: Extremities without clubbing, cyanosis, or edema. NEUROLOGICAL: Awake and alert. Cranial nerves II through XII grossly intact. Moves all extremities without difficulty. No hyperreflexia at biceps on R side. Normal speech. (Ty Rodríguez MD R2) Data Data Vital Signs Reviewed: Yes Orders Orders Vital Signs (Adult) .ON ADMISSION (03/22/17 12:20) Urinalysis - C+S If Indicated (03/22/17 12:20) Urine Culture (03/22/17 12:20) Labs Vital Signs Date Time Temp Pulse Resp B/P (MAP) Pulse Ox O2 Delivery O2 Flow Rate FiO2 03/22/17 13:46 57 125/69 (87) 03/22/17 12:35 98.2 03/22/17 11:41 15 100 Laboratory Tests Test 03/22/17 12:15 Urine Color YELLOW Urine Turbidity CLEAR Urine pH 6.0 Urine Specific [place] 1.015 Urine Protein NEG mg/dL Urine Glucose (UA) NEG mg/dL Urine Ketones NEG mg/dL Urine Occult Blood NEG Urine Nitrite POS Urine Bilirubin NEG Urine Urobilinogen LESS THAN 2.0 MG/DL Urine Leukocyte Esterase NEG Urine RBC 2 /hpf Urine WBC 1 /hpf Urine Squamous Epithelial Cells 1 /hpf Urine Amorphous Sediment RARE Urine Mucus FEW /lpf Microscopic Urinalysis Comment (Ty Rodríguez MD R2) MDM Medical Record Reviewed: Yes Narrative Course / MDM 21 yo at ~5 weeks presenting for elevated BP reading #1 Normal course BP readings Q15 min normal x6. Patient asymptomatic. - Routine f/u with PCP diaz Baca (Ty Rodríguez MD R2) Diagnosis Diagnosis: Primary Impression: Normal course Disposition: 01 DISCHARGE HOME Condition: Good Collaborating MD Comments Patient with elevated bp in [facility] office. Normotensive here and PIH work up is negative. Discharge home. Seen and evaluated with resident (Misty Baca MD) Ty Rodríguez MD R2 Mar 22, 2017 14:22 Misty Baca MD Mar 22, 2017 17:46
== END 2017-03-22 14:40 | disposition home or self-care (01) ==
LOC: HOBED 11:31
DX: O90.9 Complication of the puerperium, unspecified (principal); R82.90 Unspecified abnormal findings in urine
CPT/HCPCS: 81001; 87086; 99283

== ENCOUNTER 2017-07-21 15:42 | Emergency (ER) | payer MEDICAID ==
[2017-07-21 15:43] VITALS: BP 136/88; PULSE 113; RESP 14; TEMP 97.8; O2SAT 100
[2017-07-21 16:58] LABS: BACTERIA, URINE OCC /hpf; BILIRUBIN, URINE NEG (NEG); BLOOD, URINE SMALL (NEG); GLUCOSE,URINE NEG (NEG); HYALINE CAST, URINE 10 /lpf (RARE); KETONE, URINE 150 mg/dL (NEG); MUCUS URINE MANY /lpf (OCC); NITRITE,URINE NEG (NEG); SQUAMOUS EPITHELIAL CELL URINE 16 /hpf (0-5); URINE COLOR YELLOW (YELLW/STRAW); URINE LEUKOCYTE ESTERASE SMALL (NEG)
[2017-07-21 17:46] LABS: AUTOMATED NEUTROPHIL # 9.7 TH/MM3 (1.8-7.7); BASOPHIL # 0.1 TH/MM3 (0-0.2); BASOPHIL % 0.5 % (0.0-2.0); EOSINOPHIL % 0.1 % (0.0-4.0); HEMATOCRIT 43.5 % (35.0-46.0); HEMOGLOBIN 14.7 GM/DL (11.6-15.3); LYMPH % 13.4 % (9.0-44.0); LYMPHOCYTE # 1.6 TH/MM3 (1.0-4.8); MEAN CELL VOLUME 83.7 FL (80.0-100.0); MEAN CORPUSCULAR HEMOGLOBIN 28.4 PG (27.0-34.0); MEAN CORPUSCULAR HGB CONC 33.9 % (32.0-36.0); MEAN PLATELET VOLUME 9.1 FL (7.0-11.0); MONO % 3.8 % (0.0-8.0); MONOCYTE # 0.4 TH/MM3 (0-0.9); NEUT % 82.2 % (16.0-70.0); PLATELET COUNT 305 TH/MM3 (150-450); RED CELL DISTRIBUTION WIDTH 14.3 % (11.6-17.2); WHITE BLOOD COUNT 11.8 TH/MM3 (4.0-11.0)
[2017-07-21 17:59] LABS: BICARBONATE 18.5 MEQ/L (21.0-32.0); CALCIUM 10.1 MG/DL (8.5-10.1); CREATININE 0.73 MG/DL (0.50-1.00)
[2017-07-21] MEDS ORDERED: ONDANSETRON HCL 4 MG/2 ML VIAL IV PUSH ONE (18:30)
[2017-07-21] MEDS ORDERED: SODIUM CHLOR 0.9% 1000 ML INJ 1,000 ML IV ONE ×2 (18:30)
--- NOTE | 2017-07-21 18:39 | PD ---
HPI Chief Complaint: Related Problem Time Seen by Provider: 18:24 Travel History International Travel<30 days: No Contact w/Intl Traveler<30days: No Traveled to known affect area: No History of Present Illness HPI 21-year-old female approximately 2 months , LMP in April 2017, here for evaluation of nausea, vomiting, generalized malaise. Patient reports 2 weeks of vomiting. States her emesis is clear and sometimes bilious. She occasionally has some abdominal cramping. She states she is unable to keep anything down. She also has a slight headache. No fevers or chills. No cough or upper respiratory symptoms. She believes she may be dehydrated. PFSH Past Medical History ?: LMP: 05/21/2017 Social History Alcohol Use: No Tobacco Use: No Allergies-Medications (Allergen,Severity, Reaction): Coded Allergies: No Known Allergies (Unverified , 02/08/17) Reported Meds & Prescriptions Reported Meds & Active Scripts Active Ibuprofen 600 Mg Tab 600 Mg PO Q6H PRN Review of Systems Except as stated in HPI: all other systems reviewed are Neg Physical Exam Narrative GENERAL: Well-developed, well-nourished, comfortable, no apparent distress. SKIN: Focused skin assessment warm/dry. HEAD: Atraumatic. Normocephalic. EYES: Pupils equal and round. No scleral icterus. No injection or drainage. ENT: No nasal bleeding or discharge. Mucous membranes pink and dry. NECK: Trachea midline. No JVD. CARDIOVASCULAR: Regular rate and rhythm. RESPIRATORY: No accessory muscle use. Clear to auscultation. Breath sounds equal bilaterally. GASTROINTESTINAL: Abdomen soft, non-tender, nondistended. MUSCULOSKELETAL: No obvious deformities. No clubbing. No cyanosis. No edema. NEUROLOGICAL: Awake and alert. No obvious cranial nerve deficits. Motor grossly within normal limits. Normal speech. PSYCHIATRIC: Appropriate mood and affect; insight and judgment normal. Data Data Last Documented VS Vital Signs Date Time Temp Pulse Resp B/P (MAP) Pulse Ox O2 Delivery O2 Flow Rate FiO2 07/21/17 15:43 97.8 113 14 136/88 (104) 100 Orders Orders Urinalysis - C+S If Indicated (07/21/17 16:24) Complete Blood Count With Diff (07/21/17 16:24) Basic Metabolic Panel (Bmp) (07/21/17 16:24) Complete Rh (07/21/17 16:24) Beta Hcg (Quant/Titer) (07/21/17 16:24) Sodium Chlor 0.9% 1000 Ml Inj (Ns 1000 M (07/21/17 18:30) Sodium Chlor 0.9% 1000 Ml Inj (Ns 1000 M (07/21/17 18:30) Ondansetron Inj (Zofran Inj) (07/21/17 18:30) Acetaminophen (Tylenol) (07/21/17 19:00) Basic Metabolic Panel (Bmp) (07/21/17 20:10) Nitrofurantoin Monohyd Macrocr (Macrobid (07/21/17 20:30) Labs Laboratory Tests Test 07/21/17 16:15 07/21/17 17:04 07/21/17 21:20 Urine Color YELLOW Urine Turbidity HAZY Urine pH 6.0 Urine Specific [place] 1.035 Urine Protein 100 mg/dL Urine Glucose (UA) NEG mg/dL Urine Ketones 150 mg/dL Urine Occult Blood SMALL Urine Nitrite NEG Urine Bilirubin NEG Urine Urobilinogen 2.0 MG/DL Urine Leukocyte Esterase SMALL Urine RBC 17 /hpf Urine WBC 5 /hpf Urine Squamous Epithelial Cells 16 /hpf Urine Bacteria OCC /hpf Urine Hyaline Casts 10 /lpf Urine Mucus MANY /lpf Microscopic Urinalysis Comment CULT NOT INDICATED White Blood Count 11.8 TH/MM3 Red Blood Count 5.20 MIL/MM3 Hemoglobin 14.7 GM/DL Hematocrit 43.5 % Mean Corpuscular Volume 83.7 FL Mean Corpuscular Hemoglobin 28.4 PG Mean Corpuscular Hemoglobin Concent 33.9 % Red Cell Distribution Width 14.3 % Platelet Count 305 TH/MM3 Mean Platelet Volume 9.1 FL Neutrophils (%) (Auto) 82.2 % Lymphocytes (%) (Auto) 13.4 % Monocytes (%) (Auto) 3.8 % Eosinophils (%) (Auto) 0.1 % Basophils (%) (Auto) 0.5 % Neutrophils # (Auto) 9.7 TH/MM3 Lymphocytes # (Auto) 1.6 TH/MM3 Monocytes # (Auto) 0.4 TH/MM3 Eosinophils # (Auto) 0.0 TH/MM3 Basophils # (Auto) 0.1 TH/MM3 CBC Comment DIFF FINAL Differential Comment Blood Urea Nitrogen 11 MG/DL 9 MG/DL Creatinine 0.73 MG/DL 0.51 MG/DL Random Glucose 79 MG/DL 66 MG/DL Calcium Level 10.1 MG/DL 8.5 MG/DL Sodium Level 133 MEQ/L 135 MEQ/L Potassium Level 3.8 MEQ/L 3.7 MEQ/L Chloride Level 101 MEQ/L 107 MEQ/L Carbon Dioxide Level 18.5 MEQ/L 14.2 MEQ/L Anion Gap 14 MEQ/L 14 MEQ/L Estimat Glomerular Filtration Rate 121 ML/MIN 182 ML/MIN Human Chorionic Gonadotropin, Quant [id number] MIU/ML [facility] Medical Decision Making Medical Screen Exam Complete: Yes Emergency Medical Condition: Yes Differential Diagnosis Dehydration, hyperemesis gravidarum, metabolic abnormality, acute intra- abdominal/surgical process unlikely Narrative Course Vital signs show heart rate 113, blood pressure 136/88, pulse ox 100% on room air, tympanic temp of 97.8F. CBC: WBC 11.8, hemoglobin 14.7, hematocrit 43.5, platelets 305. BMP is remarkable for bicarbonate 18.5, otherwise essentially unremarkable. Beta hCG is 158,843. UA: Hazy, 100 protein, 150 ketones, small occult blood, small leukocyte esterase , occasional bacteria, many mucus. Bedside transabdominal ultrasound performed by me shows an IUP with heart rate of 176 bpm. Repeat heart rate after 2 L normal saline IV is 83. Repeat chemistry was performed and shows that her bicarbonate actually worsened to 14.2. This may be secondary to receiving normal saline IV. On reassessment the patient states she feels significantly improved and is tolerating clear liquids in the emergency department. Patient prefers to be discharged home and will follow up as an outpatient. She states she has a hospice plan administrator. I advised that she find an MEDICAL DRIVER physician to follow up with this week. I will give her a prescription for Macrobid for her bacteriuria during as well as a prescription for Zofran. She was informed on when to return to the emergency department. She verbalizes understanding and agreement with plan. Procedures Procedure Narrative Bedside transabdominal ultrasound: Using the curvilinear ultrasound probe, a bedside transabdominal ultrasound was performed by me and shows an IUP with a heart rate 176 bpm. Diagnosis Primary Impression: Qualified Codes: Z34.90 - Encounter for supervision of normal , unspecified, unspecified trimester Additional Impressions: Bacteriuria during Nausea and vomiting during Referrals: [facility] 3 days Additional Instructions: Follow-up with an MEDICAL DRIVER physician this week. Return to the emergency department for worsening symptoms or any other concerns. Scripts Nitrofurantoin Monohydrate Macrocrystals (Macrobid) 100 Mg Cap 100 MG PO BID for Infection for 5 Days, #10 CAP 0 Refills Prov: Anish Mehta MD 07/21/17 Ondansetron Odt (Zofran Odt) 4 Mg Tab 4 MG SL Q8HR Y for Nausea/Vomiting, #10 TAB 0 Refills Prov: Anish Mehta MD 07/21/17 Disposition: 01 DISCHARGE HOME Condition: Stable Anish Mehta MD Jul 21, 2017 18:39
[2017-07-21] MEDS ORDERED: ACETAMINOPHEN 325 MG TAB PO ONE (19:00)
[2017-07-21] MEDS ORDERED: NITROFURANTOIN MONOHYD MACROCR 100 MG CAP PO ONE (20:30)
[2017-07-21 22:04] LABS: BICARBONATE 14.2 MEQ/L (21.0-32.0); CALCIUM 8.5 MG/DL (8.5-10.1); CREATININE 0.51 MG/DL (0.50-1.00)
[2017-07-21] MEDS ORDERED: MACR100C2 PO (22:25)
[2017-07-21] MEDS ORDERED: ZOFR4TAB3 SL (22:25)
== END 2017-07-21 23:18 | disposition home or self-care (01) ==
LOC: NEPD 15:42
DX: R11.2 Nausea with vomiting, unspecified (principal); R10.9 Unspecified abdominal pain; R51 Headache
CPT/HCPCS: 80048; 81001; 84702; 85025; 86901; 96360; 96361; 99284; J2405; J7030

== ENCOUNTER 2018-02-18 09:26 | Inpatient (IN) ==
[2018-02-18] MEDS ORDERED: ceFAZolin 2 GM Premix Inj 2 GM/50 ML PIGGYBACK IV.SIG PRN (09:34)
--- NOTE | 2018-02-18 09:34 | P.HPOB ---
AUTOMATION CONTROLS SPECIALIST - Consult Note Patient Name: Jeff Fox Date of : 89 Patient Status: Clinical Attending Provider: Kody Infante Date: Initialization Date: History of Present Illness Primary Care Physician: NOT REQUIRED Dr. Arnaud Murray History of Present Illness: Previous section for repeat section Weeks Gestation:: 37 Para: 1 ( section) : 2 Review of Systems Constitutional: Denies anorexia, Denies body ache(s), Denies chills, Denies daytime sleepiness, Denies excessive sweating, Denies fatigue, Denies fever(s), Denies headache(s), Denies increased appetite, Denies lack of energy, Denies malaise, Denies night sweats, Denies weakness, Denies weight gain, Denies weight loss, Denies other Cardiovascular: Denies chest pain, Denies chest pain at rest, Denies chest pain with activity, Denies excessive sweating, Denies fainting, Denies fast heart rate, Denies foot swelling, Denies generalized swelling, Denies irregular heart rhythm, Denies leg pain with activity, Denies leg sores, Denies leg swelling, Denies lightheadedness, Denies radiating jaw, neck or arm pain, Denies rapid, pounding, or irregular heartbeat, Denies shortness of breath, Denies shortness of breath with activity, Denies shortness of breath when lying down, Denies shortness of breath causing sudden awakening, Denies slow heart rate, Denies other Respiratory: Denies change in phlegm color, Denies chest congestion, Denies cough, Denies coughing up blood, Denies excessive phlegm production, Denies pain on inspiration, Denies pain with cough, Denies shortness of breath, Denies shortness of breath with activity, Denies snoring, Denies stridor, Denies wheezing, Denies other Gastrointestinal: Denies abdominal pain, Denies belching, Denies black, tarry stools, Denies bloating, Denies bright, red blood in stools, Denies change in bowel habits, Denies constant urge to pass stool, Denies change in stools, Denies coffee ground vomit, Denies constipation, Denies cramping, Denies difficulty swallowing, Denies excessive passing of gas, Denies feeling full early, Denies heartburn, Denies incontinent of stools, Denies loose stools, Denies nausea, Denies pain with swallowing, Denies vomiting, Denies vomiting blood, Denies other Genitourinary: Denies abnormal periods, Denies abnormal vaginal bleeding, Denies absent period, Denies bleeding between periods, Denies blood in urine, Denies difficulty starting urination, Denies difficulty urinating, Denies dribbling after urination, Denies frequent nighttime urination, Denies genital itching, Denies genital lesions, Denies heavy periods, Denies hot flashes, Denies light periods, Denies nipple discharge, Denies painful intercourse, Denies painful periods, Denies painful urination, Denies pelvic pain, Denies prolapse symptoms, Denies sexual problems, Denies side pain, Denies urinary incontinence, Denies urinary urgency, Denies vaginal discharge, Denies vaginal dryness, Denies vaginal odor, Denies vaginal itching, Denies other Neurologic: Denies abnormal hearing, Denies abnormal movements, Denies abnormal speech, Denies abnormal walking, Denies behavioral changes, Denies burning sensations, Denies confusion, Denies dizziness, Denies fainting, Denies frequent falls, Denies headache(s), Denies lack of coordination, Denies localized weakness, Denies loss of vision, Denies memory loss, Denies numbness, Denies other visual disturbances, Denies radiating pain, Denies restless legs, Denies convulsions, Denies seizure-like activity, Denies sensory deficit, Denies tingling, Denies tingling/numbness/burning sensations, Denies tremor(s), Denies unsteadiness, Denies weakness, Denies other PMFSH - Surgical History Surgical History: Surgical History (Last Updated 02/08/18 @ 14:13 by Kody Infante MD) Previous section - Tobacco History Smoking Status: Never smoker - Alcohol History How Often Do You Have a Drink Containing Alcohol: Never - Substance Use History Substance History: No History of Abuse - Travel History History of Recent Travel: No Recent Travel in the [facility] Within the Last 8 Weeks: No Recent Travel Out of the Country Within the Last 8 Weeks: No Medications and Allergies Allergies Allergy/AdvReac Type Severity Reaction Status Date / Time No Known Allergies Allergy Uncoded 02/08/17 16:44 Exam - Constitutional no acute distress - Routine HEENT Exam Head: Present: normocephalic, atraumatic Eye: Present: PERRL - Routine Neck Exam Present: supple - Routine Respiratory Exam Present: CTA bilaterally - Routine Cardiovascular Exam Present: RRR, S1, S2 - Routine Abdominal Exam Present: soft - Routine Exam Comments: Cervix closed - Routine Neurological Exam Present: alert, oriented X3, CN II-XII intact Assessment and Plan - Diagnosis (1) Previous section complicating Code(s): O34.219 - Maternal care for unspecified type scar from previous delivery Status: Acute (2) 39 weeks gestation of Code(s): Z3A.39 - 39 weeks gestation of Status: Acute - Plan This plans for this multiparous previous now 39 weeks on the day of her admission for repeat is doing well and will have the above- mentioned surgery on 02/18/2018 as an elective repeat section
[2018-02-18] MEDS ORDERED: Citric Acid/Sodium Citrate Liq 30 ML UDC PO SCH (09:45)
[2018-02-18] MEDS ORDERED: Morphine Sulfate PF Inj 5 MG/10 ML Ampul ONE (10:00)
[2018-02-18] MEDS ORDERED: ceFAZolin Inj 2,000 MG in Sodium Chlor 0.9% Inj 100 ML IV.SIG SCH (10:00)
[2018-02-18 10:09] LABS: Baso % (Auto) 0.3 % (0.0-2.0); Eos # (Auto) 0.1 th/mm3 (0.0-0.4); Eos % (Auto) 1.1 % (0.0-4.0); Hematocrit 36.3 % (35.0-46.0); Hemoglobin 11.7 gm/dL (11.6-15.3); Lymph # (Auto) 2.6 th/mm3 (1.0-4.8); Lymph % (Auto) 35.2 % (9.0-44.0); Mean Corpuscular HGB Conc 32.3 % (32.0-36.0); Mean Corpuscular Hemoglobin 28.6 pg (27.0-34.0); Mean Corpuscular Volume 88.6 fL (80.0-100.0); Mean Platelet Volume 9.1 fL (7.0-11.0); Mono # (Auto) 0.4 th/mm3 (0.0-0.9); Mono % (Auto) 5.4 % (0.0-8.0); Neut # (Auto) 4.3 th/mm3 (1.8-7.7); Platelet Count 245 th/mm3 (150-450); Red Cell Distribution Width 13.2 % (11.6-17.2); White Blood Count 7.4 th/mm3 (4.0-11.0)
--- NOTE | 2018-02-18 10:11 | P.HPOB ---
History of Present Illness Primary Care Physician: No Primary Care Physician Chief Complaint: Scheduled c/s History of Present Illness: Patient is a 22 year old at 39 weeks who presents for a scheduled c/s. Patient denies contractions, fluid leakage and vaginal bleeding. She endorses positive movement. G1: full-term, c/s G2: current , no complications Weeks Gestation:: 39 Para: 1 : 2 - Inpatient Certification I certify that the inpatient services were ordered in accordance with Medicare regulations governing the order. This includes certification that hospital inpatient services are reasonable and necessary and in the case of services not specified as inpatient-only under 42 CFR 419.22(n), that they are appropriately provided as inpatient services in accordance to with the 2-midnight benchmark under 43 CFR 412.3(e) Estimated Total Length of Stay (Days): 3 Plans for Post Hospital Care: Home Review of Systems All other systems reviewed negative except as stated in HPI PMFSH - History History Provided By: Patient - Medical / Surgical Hx Neg / Unobtainable Medical Problems Denied: Yes - Surgical History Surgical History: Surgical History (Last Updated 02/18/18 @ 10:08 by Jaqui Atkinson MD, R2) History of delivery - Social History I have reviewed the patient's Social History: Yes - Tobacco History Tobacco Use In Past 30 Days: No Medications and Allergies Allergies Allergy/AdvReac Type Severity Reaction Status Date / Time No Known Allergies Allergy Unknown none Uncoded 02/18/18 09:43 Home Medications Medication Instructions Recorded Confirmed Type No Known Home Medications 02/18/18 02/18/18 History Active Medications: Active Medications Citric Acid/Sodium Citrate (Sodium Citrate/Citric Acid Liq) 30 ml PO APPLIANCE SALES ASSOCIATE [facility] Stop: 02/22/18 09:44 Lactated Ringer's (Lr 1000 Ml Inj) 1,000 mls @ 150 mls/hr IV.CONT .Q6H40M [facility] Cefazolin Sodium 2,000 mg/ (Sodium Chloride) 120 mls @ 240 mls/hr IV.SIG APPLIANCE SALES ASSOCIATE [facility] Stop: 02/21/18 09:59 Exam Vital signs: Vital Signs 02/18/18 09:45 Temperature 97.8 F Pulse Rate 70 Respiratory Rate 17 Blood Pressure 137/75 Narrative: GENERAL: Well-nourished, well-developed patient. SKIN: Warm and dry. HEAD: Normocephalic and atraumatic. EYES: No scleral icterus. No injection or drainage. ENT: No nasal drainage noted. Mucous membranes pink. Airway patent. NECK: Supple, trachea midline. No JVD. CARDIOVASCULAR: Regular rate and rhythm without murmurs, gallops, or rubs. RESPIRATORY: Breath sounds equal bilaterally. No accessory muscle use. ABDOMEN/GI: Abdomen soft, non-tender, bowel sounds present, no rebound, no guarding Gravid to 39 weeks size GENITOURINARY: Membranes: intact Uterine Contractions: irregular FHT's: Category: 1 Baseline: 135 Reactive: + Variability: moderate Decels: none EXTREMITIES: No cyanosis or edema. NEUROLOGICAL: Awake and alert. Motor and sensory grossly within normal limits. Five out of 5 muscle strength in all muscle groups. Normal speech. Results - Labs CBC & Chem 7: 02/18/18 09:44 Caprini VTE Risk Assessment Caprini VTE Risk Assessment: No/Low Risk (score <= 1) Caprini Risk Assessment Model: Point Value = 1 Point Value = 2 Point Value = 3 Point Value = 5 Age 41-60 Minor surgery BMI > 25 kg/m2 Swollen legs Varicose veins or History of unexplained or recurrent spontaneous Oral contraceptives or hormone replacement Sepsis (< 1 month) Serious lung disease, including pneumonia (< 1 month) Abnormal pulmonary function Acute myocardial infarction Congestive heart failure (< 1 month) History of inflammatory bowel disease Medical patient at bed rest Age 61-74 Arthroscopic surgery Major open surgery (> 45 min) Laparoscopic surgery (> 45 min) Malignancy Confined to bed (> 72 hours) Immobilizing plaster cast Central venous access Age >= 75 History of VTE Family history of VTE Factor V Leiden Prothrombin [id number] Lupus anticoagulant Anticardiolipin antibodies Elevated serum homocysteine Heparin-induced thrombocytopenia Other congenital or acquired thrombophilia Stroke (< 1 month) Elective arthroplasty Hip, pelvis, or leg fracture Acute spinal cord injury (< 1 month) Prophylaxis Regimen: Total Risk Factor Score Risk Level Prophylaxis Regimen 0-1 Low Early ambulation 2 Moderate Order ONE of the following: *Sequential Compression Device (SCD) *Heparin 5000 units SQ BID 3-4 Higher Order ONE of the following medications: *Heparin 5000 units SQ TID *Enoxaparin/Lovenox 40 mg SQ daily (WT < 150 kg, CrCl > 30 mL/min) *Enoxaparin/Lovenox 30 mg SQ daily (WT < 150 kg, CrCl > 10-29 mL/min) *Enoxaparin/Lovenox 30 mg SQ BID (WT < 150 kg, CrCl > 30 mL/min) AND/OR *Sequential Compression Device (SCD) 5 or more Highest Order ONE of the following medications: *Heparin 5000 units SQ TID (Preferred with Epidurals) *Enoxaparin/Lovenox 40 mg SQ daily (WT < 150 kg, CrCl > 30 mL/min) *Enoxaparin/Lovenox 30 mg SQ daily (WT < 150 kg, CrCl > 10-29 mL/min) *Enoxaparin/Lovenox 30 mg SQ BID (WT < 150 kg, CrCl > 30 mL/min) AND *Sequential Compression Device (SCD) Assessment and Plan - Diagnosis (1) 39 weeks gestation of Code(s): Z3A.39 - 39 weeks gestation of Status: Acute - Plan Patient is a 22 year old at 39 weeks who presents for a scheduled c/s. IUP, Category 1 tracing. Routine pre-op orders placed. c/s as scheduled. Discussed with OB hospitalist. - Attending Attestation The exam, history, and the medical decision-making described in the above note were completed with the assistance of the resident physician. I reviewed and agree with the findings presented. I attest that I had a [id number] encounter with the patient on the same day, and personally performed and documented my assessment and findings in the medical record.
[2018-02-18 10:16] LABS: Bacteria,Urine Occasional /hpf; Bilirubin,Urine Negative (Negative); Clarity,Urine Cloudy (Clear); Color,Urine Yellow (Yellw/Straw); Glucose,Urine (UA) Negative (Negative); Leukocyte Esterase,Urine Large (Negative); Mucus,Urine Moderate /lpf (Occasional); Nitrite,Urine Negative (Negative); Specific Gravity,Urine 1.024 (1.002-1.035); Squamous Epithelial Cell,Urine 14 /hpf (0-5)
--- NOTE | 2018-02-18 11:33 | P.OP ---
- Preoperative Diagnosis (1) 39 weeks gestation of (2) Previous section complicating - Postoperative Diagnosis (1) 39 weeks gestation of (2) Previous section complicating Date of procedure: 02/18/18 Procedure: Repeat lower uterine segment transverse section Anesthesia: spinal Surgeon: Karlos Haines MD Hull Grinder: Jaqui Atkinson Estimated blood loss (mL): 600 Pathology: other (Cord blood) Operation and Findings: The patient was taken to the operating room and after administration of a satisfactory spinal anesthetic was prepped and draped in the dorsal supine position. The skin was incised along the previous scar and the keloid scar formation was excised. Subtenons tissue was minimal and was dissected away down the level of the fascia which was nicked in the midline and extended bilaterally with the scissors. The fascia was from the underlying muscle with sharp and blunt dissection. The muscle was bluntly divided in the midline and the peritoneal cavity was bluntly entered. A transverse hysterotomy was created in the lower uterine segment and extended bilaterally with digital traction. The membranes were encountered and ruptured with clear fluid noted. The vertex was elevated out of the pelvic inlet and delivered easily through the hysterotomy. The remainder the infant followed easily. Delayed cord clamping was accomplished. The fundus was massaged and cord blood sample was obtained. Placenta passed spontaneously. The uterine cavity was wiped with a moistened lap sponge. The hysterotomy was then closed with a running suture of 0 Monocryl. The paracolic gutters and posterior cul-de -sac were evacuated of amniotic fluid and blood. Normal-appearing tubes ovaries and uterus were noted. The fascia was then closed anteriorly with #1 PDS. The subcutaneous tissue was closed with 3-0 Vicryl and the skin with 4-0 Vicryl and tissue glue. There were no complications. Sponge and needle counts were correct 3.
[2018-02-18] MEDS ORDERED: Oxytocin 30 Units/500ml Premix 30 UNITS/500 ML BAG IV.SIG ONE (11:45)
[2018-02-18] MEDS ORDERED: Naloxone Inj 0.4 MG/ML Vial IV.PUSH PRN (12:58)
[2018-02-18] MEDS ORDERED: Oxytocin 30 Units/500ml Premix 30 UNITS/500 ML BAG IV.SIG PRN (16:23)
[2018-02-18 18:57] LABS: Amphetamine Urine With Conf Neg (Neg); Benzodiazepine Urine With Conf Neg (Neg)
[2018-02-19 07:47] LABS: Baso % (Auto) 0.2 % (0.0-2.0); Eos % (Auto) 0.2 % (0.0-4.0); Hematocrit 29.8 % (35.0-46.0); Hemoglobin 10.1 gm/dL (11.6-15.3); Lymph # (Auto) 3.4 th/mm3 (1.0-4.8); Lymph % (Auto) 33.4 % (9.0-44.0); Mean Corpuscular HGB Conc 33.9 % (32.0-36.0); Mean Corpuscular Hemoglobin 29.5 pg (27.0-34.0); Mean Platelet Volume 9.5 fL (7.0-11.0); Mono # (Auto) 0.7 th/mm3 (0.0-0.9); Mono % (Auto) 6.5 % (0.0-8.0); Neut % (Auto) 59.7 % (16.0-70.0); Platelet Count 207 th/mm3 (150-450); Red Blood Count 3.42 mil/mm3 (4.00-5.30); Red Cell Distribution Width 13.2 % (11.6-17.2); White Blood Count 10.1 th/mm3 (4.0-11.0)
--- NOTE | 2018-02-19 08:20 | P.PNOB ---
Subjective Post op day: 1 Interval history: Patient is a 22-year-old delivered at 39 weeks. Patient is day 1 after repeat c/s. Patient's pain is well-controlled. Patient reports minimal bleeding. Patient reports eating and drinking without any nausea or vomiting. Patient has passed gas but has not had a bowel movement. Patient denies chest pain and shortness of breath. Patient has been ambulating; she denies lower extremity pain. Patient reports desire for contraception, which she will discuss with her PCP at her first follow-up visit. Patient has decided to bottle-feed. Objective Vital Signs/I&O: Vital Signs 02/18/18 09:45 02/18/18 09:55 02/18/18 11:25 Temperature 97.8 F 97.5 F L Pulse Rate 70 65 55 L Respiratory Rate 17 18 Blood Pressure 137/75 120/83 02/18/18 11:39 02/18/18 11:55 02/18/18 12:01 Temperature Pulse Rate 54 L 54 L 57 L Respiratory Rate 17 19 13 Blood Pressure 109/55 L 142/78 H 150/79 H 02/18/18 12:10 02/18/18 12:23 02/18/18 12:53 Temperature 97.6 F Pulse Rate 58 L 70 Respiratory Rate 18 18 Blood Pressure 136/80 134/57 L 02/18/18 12:54 02/18/18 20:00 02/18/18 21:05 Temperature 98.4 F 98.0 F Pulse Rate 63 Respiratory Rate 18 18 Blood Pressure 117/66 02/18/18 23:15 02/19/18 04:29 Temperature 98.3 F 98.4 F Pulse Rate 64 59 L Respiratory Rate 18 18 Blood Pressure 121/64 107/64 Result Diagrams: 02/19/18 07:08 Objective Remarks: GENERAL: Well-nourished, well-developed patient. CARDIOVASCULAR: Regular rate and rhythm without murmurs, gallops, or rubs. RESPIRATORY: Breath sounds equal bilaterally. No accessory muscle use. ABDOMEN/GI: Abdomen soft, bowel sounds present. Incision: Clean, dry and intact. Fundus: Firm, minimally tender at umbilicus. GENITOURINARY: Light to moderate bleeding. EXTREMITIES: No cyanosis or edema, non-tender, without signs of DVT. Medications and IVs: Active Medications Diphenhydramine HCl (Benadryl) 50 mg PO Q6H PRN PRN Reason: MILD TO MODERATE ITCHING Stop: 02/19/18 10:26 Last Admin: 02/18/18 14:04 Dose: 50 mg Diphenhydramine HCl (Benadryl Inj) 25 mg IV.PUSH Q6H PRN PRN Reason: MILD TO MODERATE ITCHING Stop: 02/19/18 10:26 Diphtheria/Pertussis/Tetanus Vacc (Boostrix Vaccine Inj) 0.5 ml IM .ONCE ONE Stop: 02/19/18 16:01 Cefazolin Sodium 2,000 mg/ (Sodium Chloride) 120 mls @ 240 mls/hr IV.SIG YOUTH CARE PROFESSIONAL JAIME Stop: 02/21/18 09:59 Lactated Ringer's (Lr 1000 Ml Inj) 1,000 mls @ 100 mls/hr IV.CONT .Q10H [facility] Stop: 02/19/18 12:22 Last Admin: 02/19/18 03:43 Dose: Not Given Oxytocin (Pitocin 30 Units/Ns 500 Ml Premix) 30 units in 500 mls @ 100 mls/hr IV.SIG UNSCH PRN PRN Reason: Heavy bleeding Ibuprofen (Motrin) 800 mg PO Q8H PRN PRN Reason: cramping Measles/Mumps/Rubella Vaccine Live (M-M-R Ii Vaccine Inj) 0.5 ml SQ .ONCE ONE Stop: 02/19/18 16:01 Miscellaneous Information ([facility]) 1 each OTHER UNSCH PRN PRN Reason: SEE LABEL COMMENTS Stop: 02/19/18 10:26 Miscellaneous Information ([facility]) 1 each OTHER UNSCH PRN PRN Reason: SEE LABEL COMMENTS Stop: 02/19/18 10:26 Naloxone HCl (Narcan Inj) 0.4 mg IV.PUSH UNSCH PRN PRN Reason: SEE LABEL COMMENTS Stop: 02/19/18 12:57 Ondansetron HCl (Zofran Inj) 4 mg IV.PUSH Q6H PRN PRN Reason: NAUSEA OR VOMITING Oxycodone/Acetaminophen (Percocet 5/325 Mg) 1 tab PO Q4H PRN PRN Reason: PAIN SCALE 3 TO 5 Oxycodone/Acetaminophen (Percocet 5/325 Mg) 2 tab PO Q4H PRN PRN Reason: PAIN SCALE 6 TO 10 Promethazine HCl (Phenergan Inj) 25 mg IM Q4H PRN PRN Reason: NAUSEA OR VOMITING Sodium Chloride (Ns Flush) 2 ml IV.FLUSH BID JAIME Last Admin: 02/18/18 20:33 Dose: Not Given Sodium Chloride (Ns Flush) 2 ml IV.FLUSH UNSCH PRN PRN Reason: FLUSH AFTER USING IV ACCESS Assessment and Plan - Diagnosis (1) delivery delivered Code(s): O82 - Encounter for delivery without indication Status: Acute - Plan Patient is a 22-year-old delivered at 39 weeks. Patient is day 1 after repeat c/s. Continue routine care. Motrin and Percocet when necessary for pain. Encourage OOB. Pelvic rest for 6 weeks will need follow-up appointment at that time. Contraception: To discuss with OB provider. Anticipate discharge tomorrow or Wednesday. diaz OB hospitalist - Attending Attestation The exam, history, and the medical decision-making described in the above note were completed with the assistance of the resident physician. I reviewed and agree with the findings presented. I attest that I had a [id number] encounter with the patient on the same day, and personally performed and documented my assessment and findings in the medical record.
[2018-02-19] MEDS ORDERED: Diphtheria/Tetanus/Pertussis Vaccine Inj 0.5 ML Syringe IM ONE (16:00)
[2018-02-19] MEDS ORDERED: Measles/Mumps/Rubella Vaccine Inj 0.5 ML Vial SQ ONE (16:00)
[2018-02-19 20:35] VITALS: RESP 18
[2018-02-20 08:12] VITALS: BP 147/77; PULSE 67; TEMP 97.6
--- NOTE | 2018-02-20 08:41 | P.PNOB ---
Subjective Interval history: Patient is a 22-year-old delivered at 39 weeks and 0 days. Patient is day 2 after . Patient's pain is well-controlled. Patient reports eating and drinking without any nausea or vomiting. Patient reports minimal bleeding. Patient has passed gas but no bowel movements. Patient is walking without lower extremity pain or shortness of breath. Patient reports desire for contraception and is bottlefeeding. Objective Vital Signs/I&O: Vital Signs 02/19/18 09:00 02/19/18 20:00 02/20/18 08:00 Temperature 98.0 F 98.7 F 97.6 F Pulse Rate 78 62 67 Respiratory Rate 18 18 Blood Pressure 121/68 103/55 L 147/77 H Result Diagrams: 02/19/18 07:08 Objective Remarks: GENERAL: Well-nourished, well-developed patient. CARDIOVASCULAR: Regular rate and rhythm without murmurs, gallops, or rubs. RESPIRATORY: Breath sounds equal bilaterally. No accessory muscle use. ABDOMEN/GI: Abdomen soft, non-tender, bowel sounds present. Incision: Clean, dry and intact. Fundus: Firm, non-tender at umbilicus. GENITOURINARY: Light to moderate bleeding. EXTREMITIES: No cyanosis or edema, non-tender, without signs of DVT. Medications and IVs: Active Medications Cefazolin Sodium 2,000 mg/ (Sodium Chloride) 120 mls @ 240 mls/hr IV.SIG MEDICATION MANAGER JAIME Stop: 02/21/18 09:59 Oxytocin (Pitocin 30 Units/Ns 500 Ml Premix) 30 units in 500 mls @ 100 mls/hr IV.SIG UNSCH PRN PRN Reason: Heavy bleeding Ibuprofen (Motrin) 800 mg PO Q8H PRN PRN Reason: cramping Last Admin: 02/19/18 23:42 Dose: 800 mg Ondansetron HCl (Zofran Inj) 4 mg IV.PUSH Q6H PRN PRN Reason: NAUSEA OR VOMITING Oxycodone/Acetaminophen (Percocet 5/325 Mg) 1 tab PO Q4H PRN PRN Reason: PAIN SCALE 3 TO 5 Oxycodone/Acetaminophen (Percocet 5/325 Mg) 2 tab PO Q4H PRN PRN Reason: PAIN SCALE 6 TO 10 Promethazine HCl (Phenergan Inj) 25 mg IM Q4H PRN PRN Reason: NAUSEA OR VOMITING Sodium Chloride (Ns Flush) 2 ml IV.FLUSH BID JAIME Last Admin: 02/19/18 23:44 Dose: Not Given Sodium Chloride (Ns Flush) 2 ml IV.FLUSH UNSCH PRN PRN Reason: FLUSH AFTER USING IV ACCESS Assessment and Plan - Diagnosis (1) 39 weeks gestation of Code(s): Z3A.39 - 39 weeks gestation of Status: Resolved (2) delivery delivered Code(s): O82 - Encounter for delivery without indication Status: Acute - Plan Patient is a 22-year-old delivered at 39 weeks. Patient is day 2 after repeat c/s. Continue routine care. Motrin and Percocet when necessary for pain. Encourage OOB. Pelvic rest for 6 weeks will need follow-up appointment at that time. Contraception: To discuss with OB provider. Anticipate discharge today dw OB hospitalist
== END 2018-02-20 11:55 | disposition home or self-care (01) ==
LOC: H2E 09:26 → H1EA 12:35
PROVIDERS: ADMIT Obstetrics & Gynecology; ATTEND Obstetrics & Gynecology